=== PATIENT | female | born 1950 | race Caucasian/White ===

== ENCOUNTER → 2019-11-15 11:44 | Outpatient (CLI) | payer MEDICARE, OTHER, SELFPAY | PROVIDERS: PCP Internal Medicine; Referring Provider Nurse Practitioner Primary Care; Visit Provider Nurse Practitioner Primary Care | DX: Z11.59 Encounter for screening for other viral diseases (principal); R68.89 Other general symptoms and signs; R05 Cough; R50.9 Fever, unspecified | CPT/HCPCS: 87635; G2023; U0003 ==